=== PATIENT | female | born 1960 | race African-American/Black ===

== ENCOUNTER 2022-01-28 23:44 | Emergency (ER) | payer OTHER ==
[~2022-01-28] VITALS: Ht 172.7 cm; Wt 85.0 kg
[2022-01-28 23:47] VITALS: BP 170/100
[2022-01-29] MEDS ORDERED: ACETAMINOPHEN 325MG TABLET PO STA
[2022-01-29] MEDS ORDERED: METOCLOPRAMIDE HCL 10MG/2ML VIAL IV ONE
[2022-01-29] MEDS ORDERED: DIPHENHYDRAMINE 50MG/ML VIAL IV ONE
[2022-01-29] MEDS ORDERED: SODIUM CHLORIDE 0.9% 1,000 ML IV ONE
[2022-01-29 00:36] LABS: BASOPHILS % 0.5 % (0.0-2.0); EOSINOPHILS % 0.4 % (0.0-5.0); HEMATOCRIT. 39.3 % (36.0-48.0); HEMOGLOBIN. 12.8 g/dL (12.0-16.0); MEAN CORPUSCULAR HEMOGLOBIN 30.2 pg (28.0-32.0); MEAN CORPUSCULAR VOLUME 92.3 fL (81.0-99.0); MEAN PLATELET VOLUME 7.7 fl (7.4-10.4); MONOCYTES % 5.1 % (2.0-8.0); PLATELET 284 x1000/uL (130-400); RED BLOOD CELL COUNT 4.26 mill/uL (4.2-5.4); RED CELL DISTRIBUTION WIDTH 14.9 % (11.6-14.6)
[2022-01-29 00:45] LABS: CHLORIDE 112 mEq/L (98-107)
[2022-01-29 00:55] LABS: ETHANOL BLOOD < 10 mg/dL
[2022-01-29] MEDS ORDERED: METO-293 MT (05:31)
== END 2022-01-29 06:33 | disposition home or self-care (01) ==
LOC: ER 23:44
DX: G43.909 Migraine, unspecified, not intractable, without status migrainosus (principal); I10 Essential (primary) hypertension; Z88.0 Allergy status to penicillin
CPT/HCPCS: 36415; 70496; 70498; 80053; 80320; 85025; 96361; 96374; 96375; 99285; J1200; J2765; J7030; G0480